=== PATIENT | female | born 1995 | race American Indian/Alaskan Native ===

== ENCOUNTER 2020-10-06 18:35 | Emergency (ER) | payer SELFPAY ==
[2020-10-06 20:32] VITALS: BP 121/89
--- NOTE | 2020-10-06 20:34 | Emergency Department Report ---
Chief Complaint: Animal Bite Stated Complaint: BIT LEG SWOLLEN Time Seen by Provider: 10/06/20 20:23 - HPI History of Present Illness: 25-year-old -[place] female presents to the emergency room for a bug bite to her left posterior thigh. Patient states that she noticed it today. Patient denies any pain but states that it itches. She does notice that it is a little swollen. No fever no chills no trauma no chest pain or shortness of breath. - Exam Physical Exam: Patient is alert and oriented x3 no acute distress nontoxic in appearance Respiratory no acute distress nonlabored breathing Cardiac regular rate Left lower extremity posterior thigh mild erythematous mild edema to his in the form of a localized reaction to a bug bite. Ambulatory without difficulty Patient is alert and oriented normal behavior mood and judgment MSE screening note: Focused history and physical exam performed. Due to findings the following was ordered: 25-year-old -[place] female presents to the emergency room for a bug bite to her left posterior thigh. Patient states that she noticed it today. Patient denies any pain but states that it itches. She does notice that it is a little swollen. No fever no chills no trauma no chest pain or shortness of breath. Patient appears to have a local reaction to a bug bite. No tenderness erythematous mild local reaction. Patient can place [id number] Benadryl topical or hydrocortisone. Encourage patient not to scratch as she can get a secondary bacterial infection. Patient verbalized understanding ED Disposition for MSE Disposition: 01 HOME / SELF CARE / HOMELESS Is pt being admited?: No Does the pt Need Aspirin: No Condition: Stable Instructions: Insect Bite, Adult, [id number] Additional Instructions: Recommend [id number] Benadryl cream or hydrocortisone. Do not scratch that she do not want to get a secondary bacterial infection. Follow-up with her primary care provider if they have any further concerns Referrals: [facility] [Provider Group] - 3-5 Days Forms: Work/School Release Form(ED)
== END 2020-10-06 20:43 | disposition home or self-care (01) ==
LOC: ED 18:35
DX: M79.605 Pain in left leg (principal)
CPT/HCPCS: 99281

== ENCOUNTER 2021-01-13 09:32 | Emergency (ER) | payer SELFPAY ==
[2021-01-13] MEDS ORDERED: ONDANSETRON 4 MG ODT TAB PO ONE (10:12)
[2021-01-13] MEDS ORDERED: HYDROcodone/ACETAMINOPHEN 5-325 MG TAB PO ONE (10:12)
--- NOTE | 2021-01-13 10:13 | Emergency Department Report ---
ED Abdominal Pain HPI - General Chief Complaint: Abdominal Pain Stated Complaint: I THINK ECTOPIC Time Seen by Provider: 01/13/21 09:46 Source: patient Mode of arrival: Ambulatory Limitations: No Limitations - History of Present Illness Initial Comments: 25-year-old female presents to the ER today with complaints of low abdominal/pelvic pain. Patient states that the pain started around 6 AM this morning and she feels like is getting worse. She states it has been a sharp constant pain since it started. She states that she has vomited 4 times. She did have a bowel movement this morning and it was normal. She states that she did start with her vaginal bleeding this morning. She assumed it was related to her menstrual cycle, but she states that she became concerned when she started having worsening pain. She states that the pain feels similar to when she had an ectopic at age 20. She states her last menstrual cycle was December 13. She has not taken a home test. She denies any UTI symptoms. She denies any abnormal vaginal discharge. She denies any new sexual partners. MD Complaint: abdominal pain, other (pelvic pain) -: Sudden, This morning Severity scale (0 -10): 8 - Related Data Previous Rx's Medication Instructions Recorded Last Taken Type Doxycycline Hyclate [Doxycycline 100 mg PO Q12HR #14 tab 01/13/21 Unknown Rx Hyclate TAB] Ibuprofen [Motrin] 600 mg PO Q8H PRN #30 tablet 01/13/21 Unknown Rx Ondansetron [Zofran Odt] 4 mg PO Q8HR #15 tab.rapdis 01/13/21 Unknown Rx Allergies Allergy/AdvReac Type Severity Reaction Status Date / Time No Known Allergies Allergy Verified 01/13/21 10:27 ED Review of Systems ROS: Stated complaint: I THINK ECTOPIC Other details as noted in HPI Comment: All other systems reviewed and negative Constitutional: denies: chills, diaphoresis, fever, malaise, weakness Respiratory: denies: cough, shortness of breath, wheezing Cardiovascular: denies: chest pain, palpitations Gastrointestinal: abdominal pain, nausea, vomiting, other (pelvic ). denies: diarrhea, constipation, hematemesis, melena, hematochezia Genitourinary: denies: urgency, dysuria, frequency, hematuria, discharge, abnormal menses, dyspareunia Musculoskeletal: denies: back pain, joint swelling, arthralgia, myalgia Skin: denies: rash, lesions, change in color, change in hair/nails, pruritus ED Past Medical Hx - Past Medical History Additional medical history: endometriosis - Surgical History Additional Surgical History: ectopic preg 2016 - Social History Smoking Status: Current Every Day Smoker Substance Use Type: None - Medications Home Medications: Home Medications Medication Instructions Recorded Confirmed Last Taken Type Doxycycline Hyclate [Doxycycline 100 mg PO Q12HR #14 tab 01/13/21 Unknown Rx Hyclate TAB] Ibuprofen [Motrin] 600 mg PO Q8H PRN #30 tablet 01/13/21 Unknown Rx Ondansetron [Zofran Odt] 4 mg PO Q8HR #15 tab.rapdis 01/13/21 Unknown Rx ED Physical Exam - General Limitations: No Limitations General appearance: alert, in no apparent distress, anxious - Head Head exam: Present: atraumatic, normocephalic, normal inspection - Eye Eye exam: Present: normal appearance, PERRL, EOMI Pupils: Present: normal accommodation - Neck Neck exam: Present: normal inspection, full ROM - Respiratory Respiratory exam: Present: normal lung sounds bilaterally. Absent: respiratory distress, wheezes, rales, rhonchi - Cardiovascular Cardiovascular Exam: Present: regular rate, normal rhythm, normal heart sounds - GI/Abdominal GI/Abdominal exam: Present: soft, tenderness (mild suprapubic and LLQ ttp without guarding. ). Absent: distended, rebound, rigid - External exam: Present: other (aerophysics engineer present ) Speculum exam: Present: vaginal bleeding (small amt blood not in vag vault ). Absent: erythema, vaginal discharge, cervical discharge, foreign body, tissue, laceration Bi-manual exam: Present: adnexal tenderness (mild ttp ). Absent: cervical motion tendernes, adnexal mass, uterine enlargement, uterine tenderness - Neurological Exam Neurological exam: Present: alert, oriented X3, CN II-XII intact, normal gait - Psychiatric Psychiatric exam: Present: normal affect, normal mood - Skin Skin exam: Present: intact ED Course Vital Signs 01/13/21 01/13/21 01/13/21 09:32 09:36 10:27 Temperature 97.6 F 97.6 F Pulse Rate 60 80 Respiratory 16 16 Rate Blood Pressure 132/88 Blood Pressure 139/71 [Right] O2 Sat by Pulse 98 96 100 Oximetry ED Medical Decision Making - Lab Data Result diagrams: 01/13/21 11:09 01/13/21 11:09 - Medical Decision Making Patient reports that she feels much better after oral hydrocodone and Zofran. Repeat abdominal exam shows a soft nontender abdomen. She is not toxic or ill- appearing and she currently is not in any significant distress. Her vital signs have been stable. She is neurologically intact. Labs reviewed and unremarkable. hCG negative. Urinalysis does not suggest UTI. Wet prep does show patient has trichomonas. Discussed results with patient. Will be treated for trichomonas, but also be treated prophylactically for GC to cover for possible PID which could cause her pain. I do suspect that her pain could also be related to her menstrual cycle which started today. Patient understands her partner needs to be treated. She understands all instructions and agree with plan. Patient was stable at time of discharge. Critical care attestation.: If time is entered above; I have spent that time in minutes in the direct care of this critically ill patient, excluding procedure time. ED Disposition Clinical Impression: Trichomonal vaginitis, Dysmenorrhea, Pelvic pain Disposition: 01 HOME / SELF CARE / HOMELESS Is pt being admited?: No Does the pt Need Aspirin: No Condition: Stable Instructions: Trichomoniasis, Dysmenorrhea, Pelvic Inflammatory Disease, [id number], Abdominal Pain (ED) Additional Instructions: I recommend that you take the doxycycline as prescribed to completion. Take the ibuprofen as prescribed for pain. Take the Zofran as prescribed for nausea and vomiting. Your partner should also get tested and treated for trichomonas, gonorrhea and chlamydia. You can follow-up with the health department for any additional STD testing. Follow-up with your PCP and [facility]. Return to the ER if your symptoms changes or worsens in any way. Prescriptions: Doxycycline Hyclate [Doxycycline Hyclate TAB] 100 mg PO Q12HR #14 tab Ibuprofen [Motrin] 600 mg PO Q8H PRN #30 tablet PRN Reason: Pain Ondansetron [Zofran Odt] 4 mg PO Q8HR #15 tab.rapdis Referrals: [facility] [Primary Care Provider] - 3-5 Days [facility]] - 3-5 Days Forms: Work/School Release Form(ED) Time of Disposition: 12:23
[2021-01-13 10:30] VITALS: BP 132/88
[2021-01-13 10:54] LABS: Bilirubin,Urine NEG (Negative); Blood,Urine LG (Negative); Color,Urine Red (Yellow); Mucus,Urine 3+ /HPF; Urobilinogen,Urine < 2.0 mg/dL (<2.0)
[2021-01-13 10:55] LABS: RBC,Urine > 182.0 /HPF (0.0-6.0); WBC,Urine < 1.0 /HPF (0.0-6.0)
[2021-01-13 11:20] LABS: Basophils % (Auto) 0.3 % (0.0-1.8); Eosinophils % (Auto) 0.8 % (0.0-4.3); Hematocrit 43.2 % (30.3-42.9); Hemoglobin 13.8 gm/dl (10.1-14.3); Lymphocytes # (Auto) 0.8 K/mm3 (1.2-5.4); Lymphocytes % (Auto) 13.7 % (13.4-35.0); Mean Corpuscular HGB Conc 32 % (30-34); Mean Corpuscular Volume 91 fl (79-97); Monocytes # (Auto) 0.5 K/mm3 (0.0-0.8); Monocytes % (Auto) 8.9 % (0.0-7.3); Platelet Count 222 K/mm3 (140-440); Red Blood Count 4.75 M/mm3 (3.65-5.03); Red Cell Distribution Width 13.1 % (13.2-15.2)
[2021-01-13 11:42] LABS: Alanine Aminotransferase 14 units/L (7-56); Albumin 4.3 g/dL (3.9-5); Blood Urea Nitrogen 8 mg/dL (7-17); Calcium 8.8 mg/dL (8.4-10.2); Hemolysis Index 6
[2021-01-13 11:48] LABS: BUN/Creatinine Ratio 16; Bilirubin,Direct < 0.2 mg/dL (0-0.2)
[2021-01-13] MEDS ORDERED: LIDOCAINE-MPF (1%) 10 MG/1 ML VIAL 5 ML INFILTRATI ONE (12:21)
[2021-01-13] MEDS ORDERED: metroNIDAZOLE 500 MG TAB PO ONE (12:22)
== END 2021-01-13 12:45 | disposition home or self-care (01) ==
LOC: ED 09:32
DX: A59.01 Trichomonal vulvovaginitis (principal); N94.6 Dysmenorrhea, unspecified; F17.200 Nicotine dependence, unspecified, uncomplicated
CPT/HCPCS: 36415; 80048; 80076; 81001; 83690; 84703; 85025; 87210; 87591; 96372; 99284; J0696; J3490; Q0162